=== PATIENT | female | born 2000 | race Caucasian/White ===

== ENCOUNTER 2021-05-06 17:00 | Emergency (ER) | payer OTHER, SELFPAY ==
[2021-05-06 17:08] VITALS: BP 136/65; PULSE 110; RESP 18; TEMP 36.9; O2SAT 98; BMI 27.3
--- NOTE | 2021-05-06 18:14 | ED_ITS ---
HPI - Skin/Abscess/Foreign Bdy General Chief complaint: Skin/Abscess/Foreign Body Stated complaint: Cyst, body aches Time Seen by Provider: 05/06/21 17:51 Source: patient Mode of arrival: ambulatory Limitations: no limitations History of Present Illness HPI narrative: Patient is a 20-year-old female with a past medical history of prior skin abscess requiring incision and drainage. states that 3 days ago she developed a wound to her right inner thigh near her groin, that opened and was draining pus. She then developed a similar lump beneath her right breast which had not yet opened. Both are painful to touch. She is uncertain as to whether she has a history of MRSA infection. In addition, she was experiencing generalized body aches and a headache that began last night. Has not decoration checker her temperature denies any known COVID- 19 contacts or sick contacts. She has not been vaccinated for COVID-19. She is a , currently 16 weeks , due date October 17, 2021, receives care at [facility], last menstrual period October 24, 2020, history of irregular menses. MD complaint: abscess/boil Onset (ago): day(s) Location: chest ( beneath right breast) and RLE ( upper inner thigh) Pain Consistency: constant Treatments prior to arrival: attempted to drain pus at home Related Data Previous Rx's Medication Instructions Recorded clindamycin HCl 300 mg capsule 300 mg PO TID 7 Days #21 cap 05/06/21 Allergies Allergy/AdvReac Type Severity Reaction Status Date / Time No Known Allergies Allergy Verified 05/06/21 18:11 Review of Systems Review of Systems: Constitutional: + chills, body aches. No weight loss, fever, weakness or fatigue. Skin: Cysts as noted in HPI Cardiovascular: No chest pain, chest pressure or chest discomfort. No palpitations or pedal edema. Respiratory: No shortness of breath, cough or sputum production. Gastrointestinal: No anorexia, nausea, vomiting or diarrhea. No abdominal pain or blood in stool. Genitourinary: No burning micturition. No urinary frequency or incontinence. Neurologic: + Headache. No dizziness, syncope, unilateral weakness, ataxia, numbness or tingling in the extremities. Musculoskeletal: No muscle pain, back pain, joint pain or stiffness. Hematologic: No bleeding or bruising. Lymphatics: No enlarged lymph nodes. Psychiatric:No depression or anxiety.. PMFSH Past Medical History Attestation statement: The following information was validated with the patient. Source: old records reviewed Social History Social History Advance Directives: No Advance Directives Information Provided: No Patient : Yes Physical Exam Vital Signs: Vital Signs: Last Vital Signs Temp 99.0 F 05/06/21 18:58 Pulse 96 05/06/21 18:58 Resp 16 05/06/21 18:58 BP 114/60 05/06/21 18:58 Pulse Ox 99 05/06/21 18:58 BMI result Body Mass Index 27.3 Vital signs have been reviewed as normal and appeared to be correct. Blood pressure normal.? Heart rate normal.? Respiration rate normal. Temperature normal.? Oxygen saturation normal. Appearance: Alert.? Oriented X3.? No acute distress.?? Eyes: Pupils equal, round and reactive to light.?? ENT: Pharynx normal.?? Neck: Normal inspection.? Neck supple.?? CVS: Normal heart rate and rhythm.? Pulses normal.?? Respiratory: No respiratory distress.? Breath sounds normal.?? Abdomen: Soft and nontender.?? Skin: + Round 5 cm abscess with purulent drainage in the right breast, mild erythema surrounding and round 2 cm abscess not currently draining to right upper inner thigh indurated, nonfluctuant and without surrounding erythema. Skin warm and dry.? Normal skin color.? Normal skin turgor.?? Extremities: No lower extremity edema.? Neuro: Oriented X 3.? No motor deficit.? No sensory deficit. Course Course Course Narrative: Patient is a 20-year-old female with a past medical history of prior skin abscess requiring incision and drainage, who presents to the emergency department for evaluation of abscesses, body aches, and headache. Abscess beneath right breast actively draining, able to manually express a small amount of purulent drainage. Abscess to right thigh not actively draining, no fluctuance. Given currently , will provide coverage for potential MRSA with clindamycin, and advised follow-up with PCP in 2-3 days. Patient found to be COVID-19 positive, reviewed indications for and referred for monoclonal antibody treatment, form fax[facility] to [facility] - Skin/Abscess/Foreign Bdy Medical Records Attestation: I reviewed the patient's medical records. Lab Data Attestation: I reviewed the patient's lab results. Labs: Lab Results 05/06/21 Range/Units 18:32 COVID-19 (EDUARDO) Positive A (Negative) COVID-19 Clin Com See Note Discharge Plan Discharge Clinical Impression: COVID-19 Abscess of skin or subcutaneous tissue Qualifiers: Site of cutaneous abscess: other site Qualified Code(s): L02.818 - Cutaneous abscess of other sites Patient Disposition: Home, Self-Care Instructions: Abscess (ED), Abscess Follow-up (ED) Additional Instructions: You were evaluated in the emergency department today for concern about your cysts. Both of which are already draining. You have been given a course of antibiotics to treat the infection. You need to contact your primary care provider to schedule follow-up visit in 2-3 days. You were tested for COVID- 19 while in the emergency department, and your test was positive. You have been referred for monoclonal antibody treatment. Prescriptions: New clindamycin HCl 300 mg capsule 300 mg PO TID 7 Days Qty: 21 RF: 0 Interventions: ED Discharge Assessment Last Done: 05/06/21 19:54 Discharge Date/Time: 05/06/21 19:57
[2021-05-06 18:42] LABS: COVID-19 Test Positive (Negative); IDNOW Serial# 9DD0AD1C
[2021-05-06 18:58] VITALS: BP 114/60; PULSE 96; RESP 16; TEMP 37.2; O2SAT 99
== END 2021-05-06 19:57 | disposition home or self-care (01) ==
PROVIDERS: Nurse Practitioner Family; Emergency Provider Emergency Medicine
DX: O98.512 Other viral diseases complicating pregnancy, second trimester (principal); U07.1 COVID-19; O26.892 Other specified pregnancy related conditions, second trimester; L02.213 Cutaneous abscess of chest wall; L02.415 Cutaneous abscess of right lower limb; Z3A.16 16 weeks gestation of pregnancy
CPT/HCPCS: 87635; 99283